=== PATIENT | female | born 1975 | race Caucasian/White ===

== ENCOUNTER → 2016-07-08 | Outpatient (CLI) | payer OTHER ==
[2016-07-08 14:37] LABS: Basophils % (A) 1 %; CH 31.1; CHCM 31.9; Eosinophils # (A) 0.2 k/uL (0-0.7); Eosinophils % (A) 3 %; HCT 45.3 % (34.0-46.0); HDW 2.29; HGB 14.1 gm/dL (11.4-16.0); Luc # (Auto) 0.12; Luc % (Auto) 2; Lymphocytes # (A) 1.5 k/uL (1.0-4.8); Lymphocytes % (A) 18 %; MCH 30.6 pg (25.0-35.0); MCHC 31.2 g/dL (31.0-37.0); MCV 97.9 fL (80.0-100.0); Mean Platelet Volume 8.3; Monocytes # (A) 0.5 k/uL (0-1.0); Monocytes % (A) 7 %; Neutrophils # (A) 5.7 k/uL (1.3-7.7); Neutrophils % (A) 71 %; RBC 4.62 m/uL (3.80-5.40); RDW 13.1 % (11.5-15.5); WBC (Perox) 7.95
[2016-07-08 14:54] LABS: Bilirubin, Delta 0.2 mg/dL (0.0-0.2); Total Bilirubin 0.3 mg/dL (0.2-1.3); Total Protein 7.3 g/dL (6.3-8.2)
[2016-07-11 15:58] LABS: HCV Qualitative Result DETECTED (Not detected)
== END | disposition home or self-care (01) ==
LOC: LABWHC1 13:49
PROVIDERS: ATTEND Physician Assistant
DX: B18.2 Chronic viral hepatitis C (principal)
CPT/HCPCS: 36415; 80076; 85025; 87522; 87902

== ENCOUNTER 2016-08-19 01:40 | Emergency (ER) | payer OTHER ==
[2016-08-19] MEDS: LORazepam 2 MG/ML SYRINGE IV STA ×5 (01:42→02:03)
[2016-08-19] MEDS: MORPHINE SULFATE 4 MG/ML SYRINGE IVP STA ×3 (01:42→02:03)
[2016-08-19 01:57] VITALS: PULSE 109; RESP 22; TEMP 97
[2016-08-19] MEDS ORDERED: MORPHINE SULFATE 2 MG/ML SYRINGE IVP STA (01:58)
[2016-08-19 02:07] VITALS: BP 161/102
[2016-08-19 02:11] LABS: Glucose,Whole Blood 150 mg/dL (75-99)
[2016-08-19] MEDS ORDERED: DIPH,PERTUS(ACELL)TETVAC-LF 0.5 ML VIAL IM ONE (02:24)
[2016-08-19] MEDS ORDERED: SODIUM CHLORIDE 0.9% 1,000 ML IV STA ×2 (02:24)
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
[2016-08-19] MEDS ORDERED: LACTATED RINGERS 1,000 ML IV STA (02:35)
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
--- NOTE | 2016-08-19 03:15 | CT ---
EXAMINATION TYPE: CT brain cspine wo con DATE OF EXAM: 08/19/2016 3:04 AM COMPARISON: EtOH, AMS, no prior HISTORY: ETOH, AMS CT DLP: 1308.80 mGycm Automated exposure control for dose reduction was used. TECHNIQUE: CT scan of the head and cervical spine are performed without contrast. FINDINGS: There is no acute intracranial hemorrhage, mass effect, or midline shift identified. The cortical sulci are slightly prominent. No significant ventricular dilatation is noted. The globes are intact and the visualized sinuses are clear. ET tube and NG tube are noted. Cervical spine is visualized in its entirety from C1 through upper thoracic levels and demonstrates s atisfactory alignment without evidence of acute fracture or dislocation. Prevertebral soft tissue ap pears within normal limits. The C1-C2 articulation is unremarkable. Mild degenerative changes are n oted in the lower cervical spine with endplate spondylosis at the level of C5-C6. IMPRESSION: 1. There is no acute fracture or dislocation evident in the cervical spine. 2. No acute intracranial hemorrhage, mass effect, or midline shift is seen. 3. ET tube and NG tube are noted.
[2016-08-19 03:19] LABS: Basophils # (A) 0.1 k/uL (0-0.2); Basophils % (A) 1 %; CH 30.3; CHCM 32.8; Eosinophils # (A) 0.2 k/uL (0-0.7); Eosinophils % (A) 1 %; HDW 2.47; HGB 12.9 gm/dL (11.4-16.0); Luc # (Auto) 0.27; Luc % (Auto) 2; Lymphocytes # (A) 2.2 k/uL (1.0-4.8); Lymphocytes % (A) 13 %; MCH 30.7 pg (25.0-35.0); MCHC 33.1 g/dL (31.0-37.0); Mean Platelet Volume 7.3; Monocytes # (A) 0.9 k/uL (0-1.0); Monocytes % (A) 5 %; Neutrophils # (A) 12.6 k/uL (1.3-7.7); Neutrophils % (A) 78 %; RBC 4.21 m/uL (3.80-5.40); RDW 13.4 % (11.5-15.5); WBC 16.2 k/uL (3.8-10.6); WBC (Perox) 15.77
[2016-08-19 03:26] LABS: MCV 92.8 fL (80.0-100.0)
[2016-08-19] MEDS ORDERED: PROPOFOL 500 MG in EMPTY BAG 1 BAG IV ONE (03:29)
[2016-08-19 03:30] LABS: ABG Base Excess -5.1 mmol/L; ABG HCO3 21 mmol/L (21-25); ABG PCO2 47 mmHg (35-45); ABG PH 7.27 (7.35-7.45); ABG PO2 >400 mmHg (83-108); ABG TCO2 22 mmol/L (19-24)
[2016-08-19 03:31] LABS: ALT 68 U/L (9-52); AST 58 U/L (14-36); Alcohol <10 mg/dL; Alkaline Phosphatase 40 U/L (38-126); Amylase <30 U/L (30-110); Anion Gap 8 mmol/L; Blood Urea Nitrogen 13 mg/dL (7-17); Calcium 7.3 mg/dL (8.4-10.2); Carbon Dioxide 22 mmol/L (22-30); Chloride 110 mmol/L (98-107); Glucose 140 mg/dL (74-99); Non-African American GFR(MDRD) >60 (>60 ml/min/1.73 sqM); Potassium 3.3 mmol/L (3.5-5.1); Sodium 140 mmol/L (137-145); Total Bilirubin 0.7 mg/dL (0.2-1.3); Total Protein 5.8 g/dL (6.3-8.2)
[2016-08-19 03:41] LABS: Creatine Kinase 168 U/L (30-135)
[2016-08-19 03:46] LABS: Appearance,Urine Clear (Clear); Bilirubin,Urine Negative (Negative); Glucose,Urine (UA) Negative (Negative); Ketones,Urine Negative (Negative); Leukocyte Esterase,Urine Negative (Negative); Nitrite,Urine Negative (Negative); PH, Urine 5.5 (5.0-8.0); Protein,Urine Trace (Negative); UA Billing (MACRO vs. MICRO) CHEM; Urobilinogen,Urine <2.0 mg/dL (<2.0)
[2016-08-19 03:54] LABS: Creatine Kinase MB 1.2 ng/mL (0.0-2.4); Troponin I <0.012 ng/mL (0.000-0.034)
== END 2016-08-19 04:21 | disposition other institution (70) ==
LOC: EC 01:40
DX: T21.32XA Burn of third degree of abdominal wall, initial encounter (principal); T21.34XA Burn of third degree of lower back, initial encounter; T21.33XA Burn of third degree of upper back, initial encounter; T22.30XA Burn of third degree of shoulder and upper limb, except wrist and hand, unspecified site, initial encounter; X08.8XXA Exposure to other specified smoke, fire and flames, initial encounter; T31.30 Burns involving 30-39% of body surface with 0% to 9% third degree burns; Z23 Encounter for immunization
CPT/HCPCS: 99291; 31500; 96374; 96375; 96376; 96361 ×2; 36415; 36600; 94002; 93005; 80053; 82150; 82375; 82550; 82553; 82805; 83690; 84484; 85025; 81003; 81025; 80306; 80320; 71010; 72170; 72125; 70450; 90715; L0120; J2060; J2270 ×2; 90471

== ENCOUNTER → 2017-03-09 | Outpatient (CLI) | payer OTHER ==
[2017-03-09 10:49] LABS: Basophils % (A) 1 %; CH 28.5; CHCM 31.2; Eosinophils # (A) 0.3 k/uL (0-0.7); Eosinophils % (A) 3 %; HCT 43.2 % (34.0-46.0); HDW 2.27; Luc # (Auto) 0.21; Luc % (Auto) 3; Lymphocytes # (A) 1.8 k/uL (1.0-4.8); Lymphocytes % (A) 22 %; MCH 29.8 pg (25.0-35.0); MCHC 32.4 g/dL (31.0-37.0); Mean Platelet Volume 7.9; Monocytes # (A) 0.4 k/uL (0-1.0); Monocytes % (A) 5 %; Neutrophils # (A) 5.4 k/uL (1.3-7.7); Neutrophils % (A) 66 %; RDW 15.5 % (11.5-15.5); WBC 8.2 k/uL (3.8-10.6); WBC (Perox) 8.29
[2017-03-09 11:07] LABS: Bilirubin, Delta 0.3 mg/dL (0.0-0.2); Total Bilirubin 0.3 mg/dL (0.2-1.3); Total Protein 8.2 g/dL (6.3-8.2)
== END | disposition home or self-care (01) ==
LOC: LABWHC1 09:50
PROVIDERS: ATTEND Physician Assistant
DX: B18.2 Chronic viral hepatitis C (principal)
CPT/HCPCS: 36415; 80076; 85025; 87522

== ENCOUNTER → 2017-08-08 | Outpatient (CLI) | payer OTHER ==
[2017-08-08 13:16] LABS: Albumin 4.4 g/dL (3.5-5.0); Bilirubin, Delta 0.2 mg/dL (0.0-0.2); Total Bilirubin 0.2 mg/dL (0.2-1.3); Total Protein 7.7 g/dL (6.3-8.2)
[2017-08-08 13:34] LABS: Basophils # (A) 0.1 k/uL (0-0.2); Basophils % (A) 1 %; Eosinophils # (A) 0.2 k/uL (0-0.7); Eosinophils % (A) 2 %; HCT 41.4 % (34.0-46.0); HGB 12.9 gm/dL (11.4-16.0); Lymphocytes # (A) 2.1 k/uL (1.0-4.8); Lymphocytes % (A) 31 %; MCH 30.3 pg (25.0-35.0); MCHC 31.2 g/dL (31.0-37.0); MCV 97.1 fL (80.0-100.0); Mean Platelet Volume 7.8; Monocytes # (A) 0.4 k/uL (0-1.0); Monocytes % (A) 6 %; Neutrophils % (A) 58 %; Platelet Count 194 k/uL (150-450); RBC 4.26 m/uL (3.80-5.40); RDW 12.7 % (11.5-15.5); WBC 6.9 k/uL (3.8-10.6)
[2017-08-09 15:50] LABS: Hepatits C Virus RNA Not detected (Not detected); Hepatits C Virus RNA, Quant <12 IU/mL (<12); LOG HCV IU/mL <1.08 (<1.08)
== END | disposition home or self-care (01) ==
LOC: LABWHC1 12:21
PROVIDERS: ATTEND Physician Assistant
DX: B18.2 Chronic viral hepatitis C (principal)
CPT/HCPCS: 36415; 80076; 85025; 87522

== ENCOUNTER → 2017-11-23 | Outpatient (CLI) | payer OTHER ==
[2017-11-23 11:02] LABS: Basophils # (A) 0.1 k/uL (0-0.2); Basophils % (A) 1 %; Eosinophils # (A) 0.2 k/uL (0-0.7); Eosinophils % (A) 2 %; HCT 38.2 % (34.0-46.0); HGB 12.4 gm/dL (11.4-16.0); Lymphocytes # (A) 2.4 k/uL (1.0-4.8); Lymphocytes % (A) 33 %; MCH 30.7 pg (25.0-35.0); MCHC 32.4 g/dL (31.0-37.0); MCV 94.8 fL (80.0-100.0); Mean Platelet Volume 7.9; Monocytes # (A) 0.5 k/uL (0-1.0); Monocytes % (A) 7 %; Neutrophils % (A) 55 %; Platelet Count 185 k/uL (150-450); RBC 4.03 m/uL (3.80-5.40); RDW 13.5 % (11.5-15.5); WBC 7.3 k/uL (3.8-10.6)
[2017-11-23 11:34] LABS: Albumin 4.4 g/dL (3.5-5.0); Bilirubin, Delta 0.2 mg/dL (0.0-0.2); Total Bilirubin 0.2 mg/dL (0.2-1.3); Total Protein 7.2 g/dL (6.3-8.2)
[2017-11-25 10:54] LABS: Hepatits C Virus RNA Not detected (Not detected); Hepatits C Virus RNA, Quant <12 IU/mL (<12); LOG HCV IU/mL <1.08 (<1.08)
== END | disposition home or self-care (01) ==
LOC: LABWHC1 10:25
PROVIDERS: ATTEND Physician Assistant
DX: B18.2 Chronic viral hepatitis C (principal)
CPT/HCPCS: 36415; 80076; 85025; 87522

== ENCOUNTER → 2018-01-26 | Outpatient (CLI) | payer OTHER ==
--- NOTE | 2018-02-01 09:16 | MM ---
Reason for exam: screening (asymptomatic). Baseline mammogram. History: Family history of breast cancer in mother at age 59. Took hormonal contraceptives for 6 years beginning at age 14. Physical Findings: Nurse Summary: 0.5 cm nodule in the left breast at 12:00 o'clock (nurse adriana). MG Screening Mammo w CAD Bilateral CC, MLO, and XCCL view(s) were taken. The breast tissue is extremely dense which could obscure a lesion on mammography. No suspicious abnormality. These results were verbally communicated with the patient and result sheet given to the patient on 01/26/18. ASSESSMENT: Incomplete: need additional imaging evaluation, BI-RAD 0 RECOMMENDATION: Ultrasound of the left breast. (upper outer quadrant at palpable abnormality)
--- NOTE | 2018-02-01 09:19 | USB ---
Reason for exam: additional evaluation requested from abnormal screening. History: Family history of breast cancer in mother at age 59. Took hormonal contraceptives for 6 years beginning at age 14. Physical Findings: Breast exam preformed at baseline screening. US Breast Workup Limited LT Left limited breast ultrasound including focal area of concern, retroareolar and axilla demonstrates no cystic or solid lesion seen. 1 o'clock dense tissue. Dense fibroglandular tissue corresponds to the palpable abnormality. These results were verbally communicated with the patient and result sheet given to the patient on 01/26/18. ASSESSMENT: Negative, BI-RAD 1 RECOMMENDATION: Return to routine screening mammogram schedule for both breasts.
== END | disposition home or self-care (01) ==
LOC: RADMAMWWP 14:25
PROVIDERS: ATTEND Internal Medicine
DX: Z12.31 Encounter for screening mammogram for malignant neoplasm of breast (principal); R92.8 Other abnormal and inconclusive findings on diagnostic imaging of breast
CPT/HCPCS: 77067

== ENCOUNTER → 2018-05-29 | Outpatient (CLI) | payer OTHER ==
[2018-05-29 11:31] LABS: Basophils # (A) 0.1 k/uL (0-0.2); Basophils % (A) 1 %; Eosinophils # (A) 0.2 k/uL (0-0.7); Eosinophils % (A) 4 %; HCT 41.1 % (34.0-46.0); Lymphocytes # (A) 2.3 k/uL (1.0-4.8); Lymphocytes % (A) 34 %; MCH 30.7 pg (25.0-35.0); MCHC 31.6 g/dL (31.0-37.0); MCV 97.2 fL (80.0-100.0); Mean Platelet Volume 8.7; Monocytes # (A) 0.4 k/uL (0-1.0); Monocytes % (A) 6 %; Neutrophils # (A) 3.6 k/uL (1.3-7.7); Neutrophils % (A) 53 %; Platelet Count 234 k/uL (150-450); RBC 4.22 m/uL (3.80-5.40); RDW 13.1 % (11.5-15.5); WBC 6.8 k/uL (3.8-10.6)
[2018-05-29 17:31] LABS: ALT 13 U/L (8-44); AST 20 U/L (13-35); Albumin/Globulin Ratio 1.96 (1.20-2.10); Alkaline Phosphatase 44 U/L (41-126); Bilirubin, Conjugated <0.20 mg/dL (0.20-0.40); Globulin 2.3 g/dL (2.1-3.7); Total Bilirubin 0.2 mg/dL (0.2-1.2); Total Protein 6.8 g/dL (6.2-8.2)
[2018-05-30 15:00] LABS: Hepatits C Virus RNA Not detected (Not detected); Hepatits C Virus RNA, Quant <12 IU/mL (<12); LOG HCV IU/mL <1.08 (<1.08)
== END | disposition home or self-care (01) ==
LOC: LABWHC1 10:51
PROVIDERS: ATTEND Physician Assistant
DX: B18.2 Chronic viral hepatitis C (principal)
CPT/HCPCS: 36415; 80076; 85025; 87522

== ENCOUNTER → 2019-03-05 | Outpatient (CLI) | payer OTHER ==
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
== END | disposition home or self-care (01) ==
LOC: RADFLMAIN 13:04
DX: M24.231 Disorder of ligament, right wrist (principal)

== ENCOUNTER → 2019-03-06 | Outpatient (CLI) | payer OTHER ==
--- NOTE | 2019-03-07 10:59 | MM ---
Reason for exam: screening (asymptomatic). Last mammogram was performed 1 year and 1 month ago. History: Family history of breast cancer in mother at age 59. Took hormonal contraceptives for 6 years beginning at age 14. Physical Findings: A clinical breast exam by your physician is recommended on an annual basis and results should be correlated with mammographic findings. MG Screening Mammo w CAD Bilateral CC and MLO view(s) were taken. Prior study comparison: January 26, 2018, bilateral MG screening mammo w CAD. The breast tissue is extremely dense which could obscure a lesion on mammography. No suspicious abnormality. Size of asymmetry of the breast, greater in the left breast, unchanged. No significant changes when compared with prior studies. ASSESSMENT: Negative, BI-RAD 1 RECOMMENDATION: Routine screening mammogram of both breasts in 1 year.
== END | disposition home or self-care (01) ==
LOC: RADMAMWWP 11:24
PROVIDERS: ATTEND Internal Medicine
DX: Z12.31 Encounter for screening mammogram for malignant neoplasm of breast (principal)
CPT/HCPCS: 77067

== ENCOUNTER → 2019-04-10 | Outpatient (CLI) | payer OTHER | END | disposition home or self-care (01) | LOC: RADFLMAIN 12:45 | PROVIDERS: ATTEND Family Medicine | DX: Z53.9 Procedure and treatment not carried out, unspecified reason (principal) ==

== ENCOUNTER → 2019-08-30 | Outpatient (CLI) | payer OTHER ==
[2019-08-30 14:14] LABS: Basophils # (A) 0.1 k/uL (0-0.2); Basophils % (A) 1 %; Eosinophils # (A) 0.2 k/uL (0-0.7); Eosinophils % (A) 2 %; HCT 38.7 % (34.0-46.0); HGB 12.5 gm/dL (11.4-16.0); Lymphocytes # (A) 2.2 k/uL (1.0-4.8); Lymphocytes % (A) 27 %; MCH 30.8 pg (25.0-35.0); MCHC 32.4 g/dL (31.0-37.0); MCV 95.2 fL (80.0-100.0); Mean Platelet Volume 8.8; Monocytes # (A) 0.4 k/uL (0-1.0); Monocytes % (A) 5 %; Neutrophils # (A) 5.3 k/uL (1.3-7.7); Neutrophils % (A) 64 %; Platelet Count 223 k/uL (150-450); RBC 4.06 m/uL (3.80-5.40); RDW 12.5 % (11.5-15.5); WBC 8.3 k/uL (3.8-10.6)
[2019-08-30 14:21] LABS: INR 0.9 (<1.2); Prothrombin Time 9.7 sec (9.0-12.0)
[2019-08-30 18:25] LABS: African American GFR (CKD) 128.5 (60.0-200.0); Anion Gap 1.8 mmol/L (4.00-12.00); Carbon Dioxide 25.2 mmol/L (21.6-31.8); Non-African American GFR(CKD) 110.9 (60.0-200.0); Potassium 4.1 mmol/L (3.5-5.5)
== END | disposition home or self-care (01) ==
LOC: LABWHC1 12:29
PROVIDERS: ATTEND Internal Medicine
DX: Z01.812 Encounter for preprocedural laboratory examination (principal)
CPT/HCPCS: 36415; 80051; 82565; 84520; 85025; 85610

== ENCOUNTER → 2020-04-30 | Outpatient (CLI) | payer OTHER ==
--- NOTE | 2020-05-01 14:46 | MM ---
Reason for exam: screening (asymptomatic). Last mammogram was performed 1 year and 2 months ago. History: Family history of breast cancer in mother at age 59. Took hormonal contraceptives for 6 years beginning at age 14. Physical Findings: A clinical breast exam by your physician is recommended on an annual basis and results should be correlated with mammographic findings. MG Screening Mammo w CAD Bilateral CC and MLO view(s) were taken. Prior study comparison: March 06, 2019, bilateral MG screening mammo w CAD. January 26, 2018, bilateral MG screening mammo w CAD. The breast tissue is extremely dense which could obscure a lesion on mammography. Focal asymmetry left breast 6mm oval, anterior upper MLO view and in the right breast 4m central CC view only. ASSESSMENT: Incomplete: need additional imaging evaluation, BI-RAD 0 RECOMMENDATION: Special view mammogram of both breasts. Consider bilateral ultrasound in extensive dense fibroglandular tissue. If lesion persists on supplemental views, image directed ultrasound is recommended. [facility] will attempt to contact patient to return for supplemental views and ultrasound if indicated.
== END | disposition home or self-care (01) ==
LOC: RADMAMWWP 16:02
PROVIDERS: ATTEND Internal Medicine
DX: Z12.31 Encounter for screening mammogram for malignant neoplasm of breast (principal)
CPT/HCPCS: 77067

== ENCOUNTER → 2020-05-06 | Outpatient (CLI) | payer OTHER ==
--- NOTE | 2020-05-06 10:23 | MM ---
Reason for exam: additional evaluation requested from abnormal screening. Last mammogram was performed less than 1 month ago. History: Family history of breast cancer in mother at age 59. Took hormonal contraceptives for 6 years beginning at age 14. Physical Findings: Nurse Summary: less than 0.5cm nodule in the right breast at 11 o'clock and a less than 0.5cm nodule in the left breast at 4 o'clock (nurse mj). MG Work Up Mamm w CAD BILAT Bilateral LM view(s) were taken. Spot compression CC view(s) were taken of the right breast. Spot compression MLO view(s) were taken of the left breast. Prior study comparison: April 30, 2020, bilateral MG screening mammo w CAD. March 06, 2019, bilateral MG screening mammo w CAD. The breast tissue is heterogeneously dense. This may lower the sensitivity of mammography. Benign calcifications. These results were verbally communicated with the patient and result sheet given to the patient on 05/06/20. ASSESSMENT: Incomplete: need additional imaging evaluation, BI-RAD 0 RECOMMENDATION: Ultrasound of both breasts.
--- NOTE | 2020-05-06 10:24 | USB ---
Reason for exam: additional evaluation requested from abnormal screening. History: Family history of breast cancer in mother at age 59. Took hormonal contraceptives for 6 years beginning at age 14. US Breast Workup Limited KIM Right limited breast ultrasound including focal area of concern, retroareolar and axilla demonstrates a 0.5 x 0.5 x 0.3cm cystic lesion at 11 o'clock. Left limited breast ultrasound including focal area of concern, retroareolar and axilla demonstrates a 0.5 x 0.5 x 0.2cm cystic lesion at 4 o'clock. These results were verbally communicated with the patient and result sheet given to the patient on 05/06/20. ASSESSMENT: Probably benign, BI-RAD 3 RECOMMENDATION: Ultrasound of both breasts in 6 months.
== END | disposition home or self-care (01) ==
LOC: RADMAMWWP 08:08
PROVIDERS: ATTEND Internal Medicine
DX: R92.8 Other abnormal and inconclusive findings on diagnostic imaging of breast (principal)
CPT/HCPCS: 77066

== ENCOUNTER → 2021-01-08 | Outpatient (CLI) | payer OTHER ==
--- NOTE | 2021-01-12 10:29 | MM ---
Reason for exam: screening (asymptomatic). Last mammogram was performed 8 months ago. History: Family history of breast cancer in mother at age 59. Took hormonal contraceptives for 6 years beginning at age 14. Physical Findings: A clinical breast exam by your physician is recommended on an annual basis and results should be correlated with mammographic findings. MG Screening Mammo w CAD Bilateral CC and MLO view(s) were taken. Prior study comparison: May 06, 2020, bilateral MG work up mamm w CAD BILAT. April 30, 2020, bilateral MG screening mammo w CAD. The breast tissue is heterogeneously dense. This may lower the sensitivity of mammography. There is no discrete abnormality. No significant changes when compared with prior studies. ASSESSMENT: Negative, BI-RAD 1 RECOMMENDATION: Routine screening mammogram of both breasts in 1 year.
== END | disposition home or self-care (01) ==
LOC: RADMAMWWP 16:34
PROVIDERS: ATTEND Internal Medicine
DX: Z12.31 Encounter for screening mammogram for malignant neoplasm of breast (principal); Z80.3 Family history of malignant neoplasm of breast; Z79.3 Long term (current) use of hormonal contraceptives
CPT/HCPCS: 77067

== ENCOUNTER → 2022-01-20 | Outpatient (CLI) | payer OTHER ==
--- NOTE | 2022-01-21 08:11 | MM ---
Reason for Exam: Screening (asymptomatic). Last screening mammogram was performed 12 month(s) ago. Patient History: Menarche at age 13. First Full-Term at age 20. Hormonal Contraceptives for 6 years from age 14 until age 19. Mother had breast cancer, age 59. Last menstrual period: 07/03/2019 Risk Values: Zulay 5 year model risk: 1.6%. NCI Lifetime model risk: 17.3%. Prior Study Comparison: 04/30/2020 Bilateral Screening Mammogram, [facility]. 05/06/2020 Bilateral Diagnostic Mammogram, [facility]. 01/08/2021 Bilateral Screening Mammogram, [facility]. Tissue Density: The breast tissue is heterogeneously dense. This may lower the sensitivity of mammography. Findings: Analyzed By CAD. There is no suspicious group of microcalcifications or new suspicious mass in either breast. Overall Assessment: Benign, BI-RAD 2 Management: Screening Mammogram of both breasts in 1 year. A clinical breast exam by your physician is recommended on an annual basis and results should be correlated with mammographic findings. Electronically signed and approved by: Andrew Beaver M.D. Radiologis
== END | disposition home or self-care (01) ==
LOC: RADMAMWWP 11:02
PROVIDERS: ATTEND Obstetrics & Gynecology
DX: Z12.31 Encounter for screening mammogram for malignant neoplasm of breast (principal); Z80.3 Family history of malignant neoplasm of breast
CPT/HCPCS: 77067

== ENCOUNTER → 2022-07-25 | Outpatient (CLI) | payer OTHER ==
--- NOTE | 2022-07-25 09:58 | US ---
EXAMINATION TYPE: US thyroid st tissue head/neck DATE OF EXAM: 07/25/2022 COMPARISON: CT cervical spine 2017 CLINICAL HISTORY: R22.1 Neck fullness GLAND SIZE: Right Lobe: 6.2 x 1.6 x 1.8 cm Overall Parenchyma: homogenous Left Lobe: 5.0 x 1.7 x 2.2 cm Overall Parenchyma: homogeneous Isthmus Thickness: 0.32 cm NODULES RIGHT: # of nodules measured on right: 0 LEFT: # of nodules measured on left: 1 1. 2.3 X 1.4 x 1.7 cm, mid , solid or almost completely solid, hypoechoic nodule, which is wider th an tall, with smooth margins, without echogenic foci. ISTHMUS: # of nodules measured in the isthmus: 0 Bilateral neck scanned, no evidence of lymphadenopathy. Homogeneous slightly enlarged thyroid with dominant 2.4 cm left thyroid nodule correlates with CT axi al image 56 IMPRESSION: Advise ultrasound-guided FNA to further evaluate. 2017 ACR TI-RADS LEVEL: TR-RADS 4 - Moderately Suspicious: Follow if > 1 cm, FNA if > 1.5 cm *Highest TI-RADS level nodule reported
--- NOTE | 2022-07-25 10:00 | US ---
EXAMINATION TYPE: US renal artery duplex complete DATE OF EXAM: 07/25/2022 COMPARISON: NONE CLINICAL HISTORY: I10 HYPERTENSION. MEASUREMENTS: RENAL SIZE: Rt Kidney: 11.0 x 4.1 x 5.2cm Lt Kidney: 11.0 x 5.0 x 4.6cm RESISTANCE INDEX Right: 0.54 Left: 0.55 RA/AO RATIO (< 3.5 ) Right: 1.3 Left: 1.2 RA VELOCITY ( < 180 cm/s) Right: 91.5 Left: 84.6 Kidney size is symmetric and within normal limits. Renal velocity measurements and ratios within norm al limits. IMPRESSION: No ultrasound evidence for suspicious focal renal artery stenosis.
== END | disposition home or self-care (01) ==
LOC: RADUSWWP 08:21
PROVIDERS: ATTEND Family Medicine
DX: E04.1 Nontoxic single thyroid nodule (principal); I10 Essential (primary) hypertension; R22.1 Localized swelling, mass and lump, neck
CPT/HCPCS: 76536; 93975

== ENCOUNTER → 2023-01-27 | Outpatient (CLI) | payer OTHER ==
--- NOTE | 2023-01-30 07:51 | MM ---
Reason for Exam: Screening (asymptomatic). Last screening mammogram was performed 12 month(s) ago. Patient History: Menarche at age 13. First Full-Term at age 20. Hormonal Contraceptives for 6 years from age 14 until age 19. Mother had breast cancer, age 59. Last menstrual period: Risk Values: Zulay 5 year model risk: 1.7%. NCI Lifetime model risk: 17.1%. Prior Study Comparison: 05/06/2020 Bilateral Diagnostic Mammogram, [facility]. 01/08/2021 Bilateral Screening Mammogram, [facility]. 01/20/2022 Bilateral MG screening mammo w CAD, [facility]. Tissue Density: The breast tissue is extremely dense which could obscure a lesion on mammography. Findings: Analyzed By CAD. There is no suspicious group of microcalcifications or new suspicious mass in either breast. Overall Assessment: Negative, BI-RAD 1 Management: Screening Mammogram of both breasts in [address] [facility] will attempt to contact patient to return for supplemental views and ultrasound if indicated. Patient should continue monthly self-breast exams. A clinical breast exam by your physician is recommended on an annual basis. This exam should not preclude additional follow-up of suspicious palpable abnormalities. Note on Zulay scores and lifetime risk: 1. A Zulay score greater than 3% is considered moderate risk. If this is the case, consider specialist referral to assess eligibility for a risk reducing agent. 2. If overall lifetime risk for the development of breast cancer is 20% or higher, the patient may qualify for future screening with alternating mammogram and breast MRI. Electronically signed and approved by: Alfonzo Jimenes DO
== END | disposition home or self-care (01) ==
LOC: RADMAMWWP 09:20
PROVIDERS: ATTEND Obstetrics & Gynecology
DX: Z12.31 Encounter for screening mammogram for malignant neoplasm of breast (principal); Z80.3 Family history of malignant neoplasm of breast
CPT/HCPCS: 77067

== ENCOUNTER → 2023-10-25 | Outpatient (CLI) | payer OTHER ==
--- NOTE | 2023-10-25 15:51 | US ---
EXAMINATION TYPE: US thyroid st tissue head/neck DATE OF EXAM: 10/25/2023 COMPARISON: NONE CLINICAL INDICATION: Female, 48 years old with history of E04.1 NONTOXIC SINGLE THYROID NODULE; thy n odule GLAND SIZE: Right Lobe: 5.1 x 1.4 x 2.2 cm Overall Parenchyma: homogeneous Left Lobe: 4.8 x 1.8 x 2.3 cm Overall Parenchyma: heterogeneous Isthmus Thickness: cm NODULES RIGHT: # of nodules measured on right: 0 LEFT: # of nodules measured on left: 1 1. 2.6 X 1.3 x 2.0 cm, mid , solid or almost completely solid, hypoechoic nodule, which is wider th an tall, with smooth margins, without echogenic foci. TR 4 nodule. Prior size: 2.3 x 1.4 x 1.7 cm ISTHMUS: # of nodules measured in the isthmus: 0 Bilateral neck scanned, no evidence of lymphadenopathy. IMPRESSION: 1. There is a 2.6 cm TR 4 left thyroid nodule recommend FNA according to ACR guidelines. 2. Heterogeneous left thyroid tissue can be associated with thyroiditis. 2017 ACR TI-RADS LEVEL: TR-RADS 4 - Moderately Suspicious: Follow if > 1 cm, FNA if > 1.5 cm *Highest TI-RADS level nodule reported
== END | disposition home or self-care (01) ==
LOC: RADUSWWP 15:25
PROVIDERS: ATTEND Internal Medicine
DX: E04.1 Nontoxic single thyroid nodule (principal)
CPT/HCPCS: 76536

== ENCOUNTER → 2024-05-09 | Outpatient (CLI) | payer OTHER ==
--- NOTE | 2024-05-13 09:22 | MM ---
Reason for Exam: Screening (asymptomatic). Last mammogram was performed 1 year(s) and 4 month(s) ago. Patient History: Menarche at age 13. First Full-Term at age 20. Patient has history of breast feeding. Hormonal Contraceptives for 6 years from age 14 until age 19. Mother had breast cancer, age 59. Risk Values: Zulay 5 year model risk: 1.7%. NCI Lifetime model risk: 16.9%. Prior Study Comparison: 01/26/2018 Bilateral Screening Mammogram, [facility]. 03/06/2019 Bilateral Screening Mammogram, [facility]. 04/30/2020 Bilateral Screening Mammogram, [facility]. 05/06/2020 Bilateral Diagnostic Mammogram, [facility]. 01/08/2021 Bilateral Screening Mammogram, [facility]. 01/20/2022 Bilateral MG screening mammo w CAD, [facility]. 01/27/2023 Bilateral MG screening mammo w CAD, [facility]. Tissue Density: The breasts are extremely dense, which lowers the sensitivity of mammography. Findings: Analyzed By CAD. Right breast: There is no suspicious group of microcalcifications or new suspicious mass. Left breast: There is no suspicious group of microcalcifications or new suspicious mass. Overall Assessment: Negative, BI-RAD 1 Management: Screening Mammogram of both breasts in [address] [facility] will attempt to contact patient to return for supplemental views and ultrasound if indicated. Patient should continue monthly self-breast exams. A clinical breast exam by your physician is recommended on an annual basis. This exam should not preclude additional follow-up of suspicious palpable abnormalities. Note on Zulay scores and lifetime risk: 1. A Zulay score greater than 3% is considered moderate risk. If this is the case, consider specialist referral to assess eligibility for a risk reducing agent. 2. If overall lifetime risk for the development of breast cancer is 20% or higher, the patient may qualify for future screening with alternating mammogram and breast MRI. [facility], , 05/13/2024 9:19 AM. Electronically signed and approved by: Alfonzo Jimenes DO
== END | disposition home or self-care (01) ==
LOC: RADMAMWWP 13:02
PROVIDERS: ATTEND Internal Medicine Geriatric Medicine
DX: Z12.31 Encounter for screening mammogram for malignant neoplasm of breast (principal); Z80.3 Family history of malignant neoplasm of breast; R92.343 Mammographic extreme density, bilateral breasts
CPT/HCPCS: 77067

== ENCOUNTER → 2024-10-28 | Outpatient (CLI) | payer OTHER ==
--- NOTE | 2024-10-28 18:26 | US ---
EXAMINATION TYPE: US thyroid st tissue head/neck DATE OF EXAM: 10/28/2024 COMPARISON: 10/25/2023 CLINICAL INDICATION: Female, 49 years old with history of E04.1 NONTOXIC SINGLE THYROID NODULE; follo w-up nodule TECHNIQUE: Grayscale and color Doppler imaging of the thyroid gland. FINDINGS: GLAND SIZE: Right Lobe: 5.3x1.5x2.1 cm Overall Parenchyma: homogeneous Left Lobe: 5.0x1.6x2.0 cm Overall Parenchyma: homogeneous Isthmus Thickness: 0.2 cm NODULES RIGHT: # of nodules measured on right: 0 LEFT: # of nodules measured on left: 1 1. 2.7 X 1.9 x 1.3 cm, upper mid, solid or almost completely solid, isoechoic nodule, which is wide r than tall, with smooth margins, without echogenic foci. Prior size: 2.6 x 1.3 x 2.0 cm ISTHMUS: # of nodules measured in the isthmus: 0 Bilateral neck scanned, no evidence of lymphadenopathy. IMPRESSION: 1. There is a 2.7 cm TR 4 left thyroid nodule recommend FNA according to ACR guidelines. Highest TI-RADS level nodule reported: 2017 ACR TI-RADS LEVEL: TI-RADS assessment score and recommendation for follow-up based on appropriate scoring and treatment protocols. TR3: If nodule size is ? 2.5 cm, FNA is recommended. If nodule size is ? 1.5 cm, follow-up imaging at 1, 3, and 5 years is recommended. TR4: If nodule size is ? 1.5 cm, FNA is recommended. If nodule size is ? 1.0 cm, follow-up imaging at 1, 2, 3, and 5 years is recommended. TR5: If nodule size is ? 1.0 cm, FNA is recommended. If nodule size is ? 0.5 cm, annual follow-up for up to 5 years is recommended. [email or web address] [facility], , 10/28/2024 6:24 PM
[2024-10-29 02:48] LABS: T4, Free (Free Thyroxine) 1.06 ng/dL (0.80-1.80)
== END | disposition home or self-care (01) ==
LOC: RADUSWWP 15:20
PROVIDERS: ATTEND Internal Medicine
DX: E04.1 Nontoxic single thyroid nodule (principal)
CPT/HCPCS: 76536; 84439; 84443